=== PATIENT | female | born 1970 | race Caucasian/White ===

== ENCOUNTER 2020-07-29 14:59 | Inpatient (IN) | payer MEDICAID ==
[~2020-07-29] VITALS: Ht 165.1 cm; Wt 88.6 kg
[~2020-07-29 14:59] MED LIST: ONDA4TAB12 PO
[2020-07-29 16:01] LABS: BASOPHILS % (AUTO) 0.1 % (0-1); EOSINOPHILS # (AUTO) 0.1 X10'3 (0-0.9); EOSINOPHILS % (AUTO) 0.4 % (0-6); HEMATOCRIT 40.5 % (35.0-45.0); HEMOGLOBIN 13.8 g/dl (12.0-16.0); LYMPHOCYTES # (AUTO) 1.8 X10'3 (1.1-4.8); LYMPHOCYTES % (AUTO) 12.3 % (21-51); MEAN CORPUSCULAR HEMOGLOBIN 29.5 PG (27.0-31.0); MEAN CORPUSCULAR HGB CONC 34.1 g/dL (33.0-36.5); MEAN CORPUSCULAR VOLUME 86.4 FL (78-98); MEAN PLATELET VOLUME 7.5 FL (7.4-10.4); MONOCYTES # (AUTO) 0.9 X10'3 (0-0.9); NEUTROPHILS # (AUTO) 11.6 X10'3 (1.8-7.7); NEUTROPHILS % (AUTO) 81.2 % (42-75); PLATELET COUNT 309 X10'3 (140-440); RED BLOOD COUNT 4.69 X10'6 (4.20-5.60); RED CELL DISTRIBUTION WIDTH 13.3 % (11.5-14.5); WHITE BLOOD COUNT 14.3 X10'3 (4.5-11.0)
[2020-07-29 16:15] LABS: ALANINE AMINOTRANSFERASE 82 U/L (12-78); ALBUMIN 3.8 G/DL (3.4-5.0); ALKALINE PHOSPHATASE 173 IU/L (46-116); AMYLASE 31 U/L (25-115); ANION GAP 8 (8-16); ASPARTATE AMINO TRANSFERASE 127 U/L (10-37); BILIRUBIN,TOTAL 0.5 MG/DL (0.1-1.0); BLOOD UREA NITROGEN 24 MG/DL (7-18); BUN/CREATININE RATIO 25.8 (6.6-38.0); CHLORIDE 104 MMOL/L (99-107); CREATININE 0.93 MG/DL (0.40-0.90); GLUCOSE 121 MG/DL (70-104); LIPASE 113 U/L (73-393); POTASSIUM 4.4 MMOL/L (3.5-5.1); SODIUM 143 MMOL/L (135-145); TOTAL CARBON DIOXIDE 31.3 MMOL/L (24-32); TOTAL PROTEIN 7.8 G/DL (6.4-8.2); eGFR 65 ML/MIN
[2020-07-29 17:36] LABS: URINE HCG NEGATIVE (NEG)
[2020-07-29] MEDS ORDERED: normal saline 1000ML IV soln IVB ONE (17:40)
[2020-07-29] MEDS ORDERED: ondansetron/PF 4mg/2ml inj IV ONE (17:40)
[2020-07-29 17:44] LABS: CLARITY,URINE CLEAR (Clear); COLOR,URINE YELLOW (Yellow); GLUCOSE, URINE NEGATIVE (Neg); KETONES,URINE NEGATIVE (Neg); LEUKOCYTE ESTERASE ,URINE NEGATIVE (Neg); NITRITES, URINE NEGATIVE (Neg); OCCULT BLOOD,URINE NEGATIVE (Neg); PH,URINE 5.5 (4.8-8.0); PROTEIN,URINE NEGATIVE (Neg); UROBILINOGEN,URINE 0.2 E.U/dL (0.2-1.0)
[2020-07-29 17:59] LABS: UA COLLECTION TYPE CLN CATCH MIDSTREAM
[2020-07-29] MEDS: morphine 4 MG/ML inj SYRINge IV PRN ×2 (18:00→20:50)
[2020-07-29] MEDS ORDERED: NO HOME MEDS (19:20)
[2020-07-29] MEDS ORDERED: levoFLOXACIN-Levaquin 750MG/D5 150 ML IV ONE (19:25)
[2020-07-29] MEDS ORDERED: metroNIDAZOLE-Flagyl 500mg/NS 100 ML IV ONE (19:25)
--- NOTE | 2020-07-29 19:47 | NUR ---
RELIEVING RN FOR BREAK, PT IS RESTING QUIETLY ON GURNEY, RESP EVEN AND UNLABORED,
[2020-07-29] MEDS ORDERED: potassium Cl 40MEQ/1/2NS 520ml 520 ML IV PRN ×2 (20:30)
[2020-07-29] MEDS ORDERED: morphine 2 MG/ML inj. syringe IV PRN (20:30)
[2020-07-29] MEDS: normal saline 1000ml 1,000 ML IV SCH (20:49)
[2020-07-29 22:00] VITALS: BP 105/66
[2020-07-30] VITALS (18 sets, daily range): BP systolic 92–119; BP diastolic 35–76
[2020-07-30] MEDS: ondansetron/PF 4mg/2ml inj IV PRN ×2 (00:38→11:48)
--- NOTE | 2020-07-30 06:24 | NUR ---
Problems reprioritized. Patient report given, questions answered & plan of care reviewed with
[2020-07-30] MEDS ORDERED: BUPIVAcaine/PF 2.5 mg/ml (0.25%) 30ml vial ONE (07:15)
[2020-07-30] MEDS ORDERED: K and/or MAG REPLACEMENT MC SCH (08:00)
[2020-07-30 08:05] LABS: BASOPHILS % (AUTO) 0.3 % (0-1); EOSINOPHILS # (AUTO) 0.2 X10'3 (0-0.9); EOSINOPHILS % (AUTO) 2.2 % (0-6); HEMATOCRIT 42.1 % (35.0-45.0); HEMOGLOBIN 13.8 g/dl (12.0-16.0); LYMPHOCYTES % (AUTO) 20.6 % (21-51); MEAN CORPUSCULAR HEMOGLOBIN 29.5 PG (27.0-31.0); MEAN CORPUSCULAR HGB CONC 32.8 g/dL (33.0-36.5); MEAN PLATELET VOLUME 7.4 FL (7.4-10.4); MONOCYTES # (AUTO) 0.9 X10'3 (0-0.9); MONOCYTES % (AUTO) 9.8 % (2-12); NEUTROPHILS # (AUTO) 6.4 X10'3 (1.8-7.7); NEUTROPHILS % (AUTO) 67.1 % (42-75); PLATELET COUNT 262 X10'3 (140-440); RED BLOOD COUNT 4.68 X10'6 (4.20-5.60); RED CELL DISTRIBUTION WIDTH 13.8 % (11.5-14.5); WHITE BLOOD COUNT 9.5 X10'3 (4.5-11.0)
[2020-07-30 08:25] LABS: ALANINE AMINOTRANSFERASE 459 U/L (12-78); ALBUMIN 3.2 G/DL (3.4-5.0); ALBUMIN/GLOBULIN RATIO 0.8 (1.1-1.5); ALKALINE PHOSPHATASE 213 IU/L (46-116); ANION GAP 10 (8-16); ASPARTATE AMINO TRANSFERASE 406 U/L (10-37); BILIRUBIN,TOTAL 0.8 MG/DL (0.1-1.0); BLOOD UREA NITROGEN 19 MG/DL (7-18); BUN/CREATININE RATIO 24.4 (6.6-38.0); CALCIUM 8.6 MG/DL (8.5-10.1); CHLORIDE 108 MMOL/L (99-107); CREATININE 0.78 MG/DL (0.40-0.90); GLUCOSE 80 MG/DL (70-104); SODIUM 143 MMOL/L (135-145); TOTAL CARBON DIOXIDE 24.7 MMOL/L (24-32); eGFR 79 ML/MIN
[2020-07-30] MEDS ORDERED: ondansetron/PF 4mg/2ml inj IV PRN ×2 (08:30→10:25)
[2020-07-30] MEDS ORDERED: morphine 2 MG/ML inj. syringe IV PRN (08:30)
[2020-07-30] MEDS ORDERED: proCHLORperazine 10 MG/2 ml inj IV PRN (08:30)
[2020-07-30] MEDS ORDERED: ringers solution, lacted 1,000 ML IV SCH (08:30)
[2020-07-30] MEDS ORDERED: meperidine/PF 25mg/ml syringe IV PRN ×3 (08:30)
[2020-07-30] MEDS ORDERED: morphine 4 MG/ML inj SYRINge IV PRN (08:30)
[2020-07-30] MEDS: metroNIDAZOLE-Flagyl 500mg/NS 100 ML IV SCH ×3 (08:41→23:12)
[2020-07-30] MEDS: normal saline 1000ml 1,000 ML IV SCH ×3 (08:42→23:12)
[2020-07-30] MEDS ORDERED: magnesium 4gm in 100ml NS 100 ML IV PRN (09:00)
[2020-07-30] MEDS ORDERED: potassium Cl 40MEQ/1/2NS 520ml 520 ML IV PRN (09:00)
[2020-07-30] MEDS ORDERED: potassium Cl 20 mEq SR tablet PO PRN ×2 (09:00)
[2020-07-30] MEDS ORDERED: magnesium Cl slow-release 64mg tablet PO PRN (09:00)
--- NOTE | 2020-07-30 09:00 | NUR ---
pt off the floor to OR
[2020-07-30] MEDS ORDERED: rocuronium 10mg/ml inj IV ONE (09:15)
[2020-07-30] MEDS ORDERED: midazolam 1 mg/ML 2ml injection ONE (09:15)
[2020-07-30] MEDS ORDERED: fentaNYL/PF 50MCG/1 ML 2ML syringe ONE ×2 (09:15)
[2020-07-30] MEDS ORDERED: propofol inj 20 ML IV ONE (09:15)
[2020-07-30] MEDS ORDERED: dexamethasone sod phosphate 4mg/ml inj. ONE (09:34)
[2020-07-30] MEDS ORDERED: ondansetron/PF 4mg/2ml inj ONE (10:05)
[2020-07-30] MEDS ORDERED: neostigmine methylsulfate 1 MG/ML 10ml vial ONE (10:07)
[2020-07-30] MEDS ORDERED: glycopyrrolate 0.2mg/ml inj ONE (10:07)
[2020-07-30] MEDS ORDERED: HYDROcodone/acetaminophen 10/325mg tab PO PRN (10:25)
--- NOTE | 2020-07-30 10:32 | NUR ---
Received from OR via , accompanied by Anesthesiologist DR NIETO and report given by Anesthesiolgist. AWAKENS TO VOICE. VITALS STABLE. YARI PAIN. DRESSINGS DI ABD SOFT.
--- NOTE | 2020-07-30 11:22 | NUR ---
Report called to receiving nurse. Transferred via [facility] . Special Issues communicated to receiving nurse. AWAKENS TO VOICE. VITALS STAVBLE. DRESSINGS DI. YARI PAIN. TO SURGICAL RM 354C AT THIS TIME.
[2020-07-30] MEDS: levoFLOXACIN-Levaquin 500mg/D5 100 ML IV SCH (11:48)
--- NOTE | 2020-07-30 18:31 | NUR ---
Patient in room [facility]. I have received report from Gerardo EPPERSON and had the opportunity to ask questions and assume patient care.
[2020-07-30] MEDS: K and/or MAG REPLACEMENT MC SCH (20:00)
--- NOTE | 2020-07-30 21:00 | NUR ---
Could not palpate right radial pulse, patient reports that this is normal. [facility]
[2020-07-31 00:30] VITALS: BP 100/59
--- NOTE | 2020-07-31 06:29 | NUR ---
I agree with the documentation, assessments, and report that ZEENAT Cormier has given. Report was given to ZEENAT Carrillo
[2020-07-31 06:30] VITALS: BP 104/53
--- NOTE | 2020-07-31 06:37 | NUR ---
Patient in room [facility]. I have received report from Gerardo EPPERSON and had the opportunity to ask questions and assume patient care.
--- NOTE | 2020-07-31 06:38 | NUR ---
Problems reprioritized. Patient report given, questions answered & plan of care reviewed with Jennifer RN.
--- NOTE | 2020-07-31 06:40 | NUR ---
Patient in room [facility]. I have received report from ZEENAT Cormier and had the opportunity to ask questions and assume patient care.
[2020-07-31 07:01] LABS: BASOPHILS % (AUTO) 0.1 % (0-1); EOSINOPHILS % (AUTO) 0.1 % (0-6); HEMATOCRIT 36.6 % (35.0-45.0); HEMOGLOBIN 12.3 g/dl (12.0-16.0); LYMPHOCYTES # (AUTO) 1.6 X10'3 (1.1-4.8); LYMPHOCYTES % (AUTO) 12.7 % (21-51); MEAN CORPUSCULAR HEMOGLOBIN 29.7 PG (27.0-31.0); MEAN CORPUSCULAR HGB CONC 33.7 g/dL (33.0-36.5); MEAN CORPUSCULAR VOLUME 88.1 FL (78-98); MEAN PLATELET VOLUME 7.9 FL (7.4-10.4); MONOCYTES # (AUTO) 1.1 X10'3 (0-0.9); MONOCYTES % (AUTO) 8.6 % (2-12); NEUTROPHILS # (AUTO) 10.1 X10'3 (1.8-7.7); NEUTROPHILS % (AUTO) 78.5 % (42-75); PLATELET COUNT 280 X10'3 (140-440); RED BLOOD COUNT 4.15 X10'6 (4.20-5.60); RED CELL DISTRIBUTION WIDTH 13.8 % (11.5-14.5); WHITE BLOOD COUNT 12.9 X10'3 (4.5-11.0)
[2020-07-31 07:41] LABS: ALANINE AMINOTRANSFERASE 381 U/L (12-78); ALBUMIN 3.2 G/DL (3.4-5.0); ALBUMIN/GLOBULIN RATIO 0.9 (1.1-1.5); ALKALINE PHOSPHATASE 231 IU/L (46-116); ANION GAP 10 (8-16); BILIRUBIN,TOTAL 0.5 MG/DL (0.1-1.0); BLOOD UREA NITROGEN 13 MG/DL (7-18); BUN/CREATININE RATIO 17.6 (6.6-38.0); CALCIUM 8.7 MG/DL (8.5-10.1); CHLORIDE 109 MMOL/L (99-107); CREATININE 0.74 MG/DL (0.40-0.90); GLUCOSE 96 MG/DL (70-104); SODIUM 144 MMOL/L (135-145); TOTAL CARBON DIOXIDE 25.3 MMOL/L (24-32); TOTAL PROTEIN 6.9 G/DL (6.4-8.2); eGFR 84 ML/MIN
[2020-07-31 07:43] LABS: ASPARTATE AMINO TRANSFERASE 188 U/L (10-37); PHOSPHORUS 3.1 MG/DL (2.3-4.5); POTASSIUM 4.2 MMOL/L (3.5-5.1)
[2020-07-31] MEDS: K and/or MAG REPLACEMENT MC SCH (08:00)
[2020-07-31] MEDS: metroNIDAZOLE-Flagyl 500mg/NS 100 ML IV SCH (08:18)
[2020-07-31] MEDS: levoFLOXACIN-Levaquin 500mg/D5 100 ML IV SCH (09:43)
--- NOTE | 2020-07-31 12:30 | NUR ---
DC inst provided to pt. IV DC'd, tip intact. All belongings sent w/pt. WC to front lobby.
== END 2020-07-31 12:30 | disposition home or self-care (01) | DRG 263 ==
LOC: ER 15:00 → ED HOLD 20:29 → SUR 3N 22:00
PROVIDERS: ADMIT Internal Medicine; ATTEND Family Medicine
PROC: 0FT44ZZ Resection of Gallbladder, Percutaneous Endoscopic Approach (ICD-10-PCS; principal; 2020-07-30 09:17)
DX: K80.00 Calculus of gallbladder with acute cholecystitis without obstruction (principal); Z20.822 Contact with and (suspected) exposure to COVID-19; Z87.442 Personal history of urinary calculi; Z90.710 Acquired absence of both cervix and uterus; Z88.1 Allergy status to other antibiotic agents
CPT/HCPCS: 36415; 76700; 80053; 81003; 81025; 82150; 82948; 83690; 83735; 84100; 85025; 87081; 87635; 96361; 96365; 96375; 99285; A4215; A4618; A7000; G0378; J1100; J1956; J2250; J2270; J2405; J2704; J2710; J3010; J3490; J7030

== ENCOUNTER 2021-09-11 12:36 | Emergency (ER) | payer MEDICAID ==
[~2021-09-11] VITALS: Ht 165.1 cm; Wt 94.1 kg
[~2021-09-11 12:36] MED LIST changes: +NO HOME MEDS; -ONDA4TAB12 PO
[2021-09-11 13:03] VITALS: BP 131/78
[2021-09-11] MEDS ORDERED: ondansetron 4mg rapidly disintigrating tab PO ONE (14:00)
[2021-09-11] MEDS ORDERED: SULF1TAB49 PO (14:24)
[2021-09-11] MEDS ORDERED: sulfamethoxazole/trimethoprim DS (800/160mg) tablet PO ONE (14:25)
[2021-09-11] MEDS ORDERED: HYDROcodone/acetaminophen 10/325mg tab PO ONE (14:25)
== END 2021-09-11 15:02 | disposition home or self-care (01) ==
LOC: ER 12:36
DX: L02.212 Cutaneous abscess of back [any part, except buttock and flank] (principal); Z88.1 Allergy status to other antibiotic agents
CPT/HCPCS: 10060; 99284; A6258; A6449